=== PATIENT | male | born 1970 | race Caucasian/White ===

== ENCOUNTER 2017-10-06 05:31 | Day surgery (SDC) | payer OTHER ==
[~2017-10-06] VITALS: Ht 157.5 cm; Wt 68.9 kg
[~2017-10-06 05:31] MED LIST: FLONASE ALLERG9.9 ML BOTH NARES; MULTI-DAY PLUS1 EAC1 PO; SINGULAIR10 MG PO; ZYRTEC10 M3 PO
[2017-10-06 06:02] VITALS: BP 132/78
[2017-10-06 09:44] VITALS: BP 105/81
[2017-10-06 10:45] VITALS: BP 129/80
== END 2017-10-06 11:00 | disposition home or self-care (01) ==
LOC: SDC 05:31
PROC: 06DY0ZZ Extraction of Lower Vein, Open Approach (ICD-10-PCS; principal; 2017-10-06)
DX: I83.811 Varicose veins of right lower extremity with pain (principal); J45.909 Unspecified asthma, uncomplicated
CPT/HCPCS: J0131; J0690; J1100; J1885; J2250; J2405; J3010